=== PATIENT | female | born 1950 | race Caucasian/White ===

== ENCOUNTER 2017-10-20 15:38 | Inpatient (IN) | payer MEDICARE ==
[~2017-10-20] VITALS: Ht 165.1 cm; Wt 57.4 kg
--- NOTE | 2017-10-20 17:01 | NUR ---
No acute change in condition seen, pt is AOX4, ambulated to the bathroom with steady gait, NAD.
[2017-10-20] MEDS ORDERED: CLINDAMYCIN PHOSPHATE IV 600 MG in IV DEXTROSE 5% 100 ML IV ONE (18:04)
[2017-10-20] MEDS ORDERED: CLINDAMYCIN PHOSPHATE IV 600 MG in IV DEXTROSE 5% 100 ML IV SCH (18:09)
[2017-10-20] MEDS ORDERED: KETOROLAC TROMETHAMINE 15 MG INJ IVP ONE (18:15)
[2017-10-20 18:23] LABS: BASOPHILS # (AUTO) 0.1 K/uL (0.0-8.0); BASOPHILS % (AUTO) 0.7 % (0.0-2.0); EOSINOPHILS % (AUTO) 0.6 % (0.0-7.0); HEMATOCRIT 39.2 % (31.2-41.9); HEMOGLOBIN 13.1 g/dL (10.9-14.3); LYMPHOCYTES # (AUTO) 1.4 K/uL (20.0-40.0); LYMPHOCYTES % (AUTO) 17.8 % (20.5-51.5); MEAN CORPUSCULAR HEMOGLOBIN 29.8 uug (24.7-32.8); MEAN CORPUSCULAR HGB CONC 34 g/dL (32.3-35.6); MONOCYTES # (AUTO) 0.8 K/uL (2.0-10.0); MONOCYTES % (AUTO) 10.8 % (0.0-11.0); NEUTROPHILS # (AUTO) 5.4 K/uL (1.8-8.9); NEUTROPHILS % (AUTO) 70.1 % (38.5-71.5); PLATELET COUNT (AUTO) 292 K/uL (179-408); WHITE BLOOD COUNT (AUTO) 7.7 K/uL (3.8-11.8)
[2017-10-20] MEDS ORDERED: CLINDAMYCIN PHOSPHATE 600 MG/4 ML VIAL ONE ×2 (18:25→23:01)
[2017-10-20] MEDS ORDERED: KETOROLAC TROMETHAMINE 15 MG INJ ONE (18:25)
[2017-10-20 18:32] LABS: CREATININE 0.7 mg/dL (0.6-1.3); POTASSIUM 4.4 mmol/L (3.5-5.1)
[2017-10-20 18:38] LABS: BILIRUBIN,TOTAL 0.6 mg/dL (0.2-1.0); TOTAL PROTEIN, SERUM 7.7 g/dL (6.4-8.2)
--- NOTE | 2017-10-20 19:09 | NUR ---
SBAR to nurse William hdz is still for med-surgical admission, pending accepting 2nd floor [email or web address] time
--- NOTE | 2017-10-20 19:55 | NUR ---
REPORT GIVEN TO LISSA MARRERO
--- NOTE | 2017-10-20 20:15 | NUR ---
Pt. admitted to [facility], under care of Dr. CHAMBERS Belongs List completed
--- NOTE | 2017-10-20 20:30 | NUR ---
PT ARRIVED TO [facility] FLOOR WITH FRIEND AT BEDSIDE. A&0 X4. COMPLAINS OF PAIN TO LEFT GREAT TOE. REDNESS NOTED TO LEFT GREAT TOE. NO OTHER SKIN ISSUES NOTED. ORIENTATED PT TO UNIT AND USE OF CALL LIGHT. WILL PAGE DR EDUARDO FOR ADMITTING ORDERS.
[2017-10-20 20:38] VITALS: BP 138/69
[2017-10-20] MEDS ORDERED: ONDANSETRON 4 MG/2 ML VIAL IV PRN (21:30)
[2017-10-20] MEDS ORDERED: ZOLPIDEM 5 MG TABLET PO PRN (21:30)
[2017-10-20] MEDS ORDERED: MORPHINE SULFATE 4 MG/1 ML DISP.SYRIN IV PRN (21:30)
[2017-10-20] MEDS ORDERED: HYDROCODONE/APAP 5-325MG TABLET PO PRN (21:30)
[2017-10-20] MEDS ORDERED: MAGNESIUM HYDROXIDE 30 ML LIQUID UDC PO PRN (21:30)
[2017-10-20] MEDS ORDERED: ACETAMINOPHEN 325 MG TABLET PO PRN (21:30)
[2017-10-20] MEDS ORDERED: ENOXAPARIN SODIUM 40 MG/0.4 ML DISP.SYRIN SQ SCH ×2 (22:00→23:00)
[2017-10-20] MEDS: VANCOMYCIN 1 GM IV ONE (23:03)
--- NOTE | 2017-10-20 23:03 | NUR ---
pt refused DVT pumps, lovenox. Will hold Vanco tonight after pharmacy doses in the morning.
[2017-10-20] MEDS: CLINDAMYCIN PHOSPHATE IV 600 MG in IV DEXTROSE 5% 100 ML IV SCH (23:12)
[2017-10-20] MEDS ORDERED: VANCOMYCIN 1000 MG VIAL ONE (23:41)
[2017-10-21] MEDS: VANCOMYCIN 1 GM IV ONE (00:14)
--- NOTE | 2017-10-21 00:14 | NUR ---
ADMINISTERED FIRST DOSE OF VANCO. PHARM WILL REVIEW SUBSEQUENT DOSES IN THE MORNING.
[2017-10-21] MEDS ORDERED: IBUPROFEN 400 MG TABLET PO PRN (00:30)
[2017-10-21] MEDS: IBUPROFEN 400 MG TABLET PO PRN ×2 (04:34→15:38)
[2017-10-21 05:23] VITALS: BP 110/52
[2017-10-21 06:25] LABS: BILIRUBIN,TOTAL 0.6 mg/dL (0.2-1.0); CREATININE 0.7 mg/dL (0.6-1.3); MAGNESIUM 2.2 mg/dL (1.8-2.4); PHOSPHOROUS 3.7 mg/dL (2.5-4.9); POTASSIUM 3.6 mmol/L (3.5-5.1); TOTAL PROTEIN, SERUM 6.1 g/dL (6.4-8.2)
[2017-10-21 06:41] LABS: THYROID STIMULATING HORMONE 3.644 mIU/mL (0.358-3.740)
[2017-10-21 06:43] LABS: BASOPHILS % (AUTO) 0.6 % (0.0-2.0); EOSINOPHILS # (AUTO) 0.2 K/uL (0.0-0.7); EOSINOPHILS % (AUTO) 2.9 % (0.0-7.0); LYMPHOCYTES # (AUTO) 1.9 K/uL (20.0-40.0); LYMPHOCYTES % (AUTO) 31.1 % (20.5-51.5); MEAN CORPUSCULAR HEMOGLOBIN 29.9 uug (24.7-32.8); MEAN CORPUSCULAR HGB CONC 34 g/dL (32.3-35.6); MEAN CORPUSCULAR VOLUME 88.2 fL (75.5-95.3); MONOCYTES # (AUTO) 0.8 K/uL (2.0-10.0); MONOCYTES % (AUTO) 12.6 % (0.0-11.0); NEUTROPHILS # (AUTO) 3.3 K/uL (1.8-8.9); NEUTROPHILS % (AUTO) 52.8 % (38.5-71.5); PLATELET COUNT (AUTO) 238 K/uL (179-408); RED BLOOD CELL COUNT(AUTO) 3.78 MIL/uL (3.63-4.92); WHITE BLOOD COUNT (AUTO) 6.2 K/uL (3.8-11.8)
[2017-10-21 06:55] LABS: HEMATOCRIT 33.3 % (31.2-41.9); HEMOGLOBIN 11.3 g/dL (10.9-14.3)
--- NOTE | 2017-10-21 07:20 | NUR ---
RECEIVED REPORT FROM PRESS OPERATOR [employer] NURSE, PATIENT IN BED AWAKE, REPORTS MILD PAIN IN LEFT TOE, BUT BETTER THAN LAST NIGHT. NO EVIDENCE OF DISTRESS AT THIS TIME, BED IN LOW POSITION, SIDE RAILS UP X2.
[2017-10-21] MEDS ORDERED: PANTOPRAZOLE SODIUM 40 MG TABLET.DR PO SCH (07:30)
[2017-10-21] MEDS: CLINDAMYCIN PHOSPHATE IV 600 MG in IV DEXTROSE 5% 100 ML IV SCH ×2 (08:03→14:24)
[2017-10-21] MEDS ORDERED: ACIDOPHILUS/BULGARICUS CHEW TAB PO SCH (09:00)
[2017-10-21 11:47] VITALS: BP 131/58
--- NOTE | 2017-10-21 12:55 | NUR ---
Clinical pharmacy note-Vancomycin dosing per pharmacy Subjective: To start Vancomycin dosing on this patient for cellulitis(potential abscess left great toe-ER note) Objective; BUN 11 Scr 0.7 WBC 6.2 Temp 98 Assessment/Plan: Patient had Vancomycin 1 gram last night at 2300, will continue Vancomycin 1 gram IV every 15 hrs(second dose today at 1400) and draw trough by 4th dose (not ordered yet) for expected trough around 16. Will monitor daily.
[2017-10-21] MEDS ORDERED: VANCOMYCIN IV 1 G in PREMIXED 0 EACH IV SCH (14:00)
[2017-10-21 14:25] LABS: *BILIRUBIN,URIN NEGATIVE (NEGATIVE); *BLOOD, URINE NEGATIVE (NEGATIVE); *CLARITY,URINE CLEAR (CLEAR); *COLOR,URINE YELLOW (YELLOW); *KETONES,URINE NEGATIVE (NEGATIVE); *PROTEIN,URINE NEGATIVE (NEGATIVE); *UROBILINOGEN,URINE 0.2 E.U./dl (NORMAL); LEUKOCYTE ESTERASE ,URINE NEGATIVE (NEGATIVE); NITRITE, URINE NEGATIVE (NEGATIVE); UGLUCOSE NEGATIVE (NEGATIVE)
[2017-10-21 14:45] LABS: BACTERIA,URINE NONE SEEN /HPF (NONE SEEN); RBC,URINE 0-3 /HPF (0-3); SQUAMOUS EPITHELIAL CELL,UR NONE SEEN /HPF (NONE SEEN); WBC,URINE 0-3 /HPF (0-3)
[2017-10-21 15:41] VITALS: BP 129/53
[2017-10-21] MEDS ORDERED: IBUP-1953 PO (16:42)
[2017-10-21] MEDS ORDERED: OMEG1CAP PO (16:42)
[2017-10-21] MEDS ORDERED: SULF1TAB48 PO (16:42)
--- NOTE | 2017-10-21 18:54 | NUR ---
Patient has been cooperative with care, currently in bed, no distress noted, bed in low position, side rails up x2. Patient has been discharged by Dr. Munguia, will need to be processed in the evening shift.
--- NOTE | 2017-10-21 19:00 | NUR ---
RECEIVED PATIENT ALERT ORIENTED, NO SOB NO CHEST PAIN, NO COMPLAIN OF PAIN, CONT TO MONITOR.
[2017-10-21 20:00] VITALS: BP 120/53
--- NOTE | 2017-10-21 20:30 | NUR ---
PATIENT DISCHARGE HOME, PICKED UP BY A FRIEND VIA [employer]IVATE CARS.,INSTRUCTIONS GIVEN. PATIENT TOOK ALL THE BELONGINGS.
[2017-10-21] MEDS ORDERED: DOCUSATE SODIUM 250 MG CAPSULE PO SCH (21:00)
[2017-10-21] MEDS ORDERED: ENOXAPARIN SODIUM 40 MG/0.4 ML DISP.SYRIN SQ SCH (21:00)
== END 2017-10-21 20:30 | disposition home or self-care (01) | DRG 603 ==
LOC: ER 15:40 → MED 20:03
PROVIDERS: ADMIT Internal Medicine; ATTEND Internal Medicine
DX: L03.032 Cellulitis of left toe (principal); E78.5 Hyperlipidemia, unspecified; L02.612 Cutaneous abscess of left foot; M35.3 Polymyalgia rheumatica; Z88.0 Allergy status to penicillin; M79.7 Fibromyalgia; Z79.52 Long term (current) use of systemic steroids; M81.0 Age-related osteoporosis without current pathological fracture
CPT/HCPCS: 36415; 71045; 73560; 73620; 83735; 84100; 84443; 85025; 85610; 87040; A4663; J1885; J3370; J3490; J7050; J7060